=== PATIENT | female | born 1985 | race Caucasian/White ===

== ENCOUNTER 2021-12-24 18:55 | Emergency (ER) | payer BC ==
[2021-12-24] MEDS: Ondansetron 4 MG/2 ML SDV IVPUSH ONE (19:33)
[2021-12-24] MEDS: Sodium Chloride 0.9% 1,000 ML IV ONE (19:33)
[2021-12-24 20:01] LABS: CARBON DIOXIDE,CO2 26.8 mmol/L (21.0-32.0); POTASSIUM,K 3.6 mmol/L (3.5-5.1)
[2021-12-24] MEDS: Morphine 4 MG/ML VIAL IVPUSH ONE (20:31)
[2021-12-24] MEDS: Iopamidol 755 MG/ML 500 ML Multipack Bottle IVPUSH STA (21:05)
[2021-12-24] MEDS: Ciprofloxacin in D5W 400 MG in Premix Bag 1 BAG IV SCH ×2 (22:50)
[2021-12-24] MEDS: metroNIDAZOLE/Normal Saline 500 MG in Premix Bag 1 BAG IV ONE (22:51)
== END 2021-12-25 00:12 | disposition home or self-care (01) ==
LOC: MW.ED 18:55
DX: K57.32 Diverticulitis of large intestine without perforation or abscess without bleeding (principal); Z88.0 Allergy status to penicillin; Z88.2 Allergy status to sulfonamides; Z20.822 Contact with and (suspected) exposure to COVID-19
CPT/HCPCS: 36415; 74177; 80053; 81001; 81025; 83690; 83735; 85025; 87635; 96361; 96365; 96368; 96375; 99284; J0744; J2270; J2405; J3490; J7030; Q9967; U0002

== ENCOUNTER 2021-12-29 03:57 | Day surgery (SDC) | payer BC ==
[2021-12-29] MEDS ORDERED: Lactated Ringers 1,000 ML IV STA (03:59)
[2021-12-29] MEDS ORDERED: Morphine 4 MG/ML VIAL IVPUSH ONE ×2 (03:59→08:45)
[2021-12-29] MEDS ORDERED: Piperacillin/Tazobactam 4.5 GM in Sodium Chloride 0.9% 100 ML IV ONE (04:42)
[2021-12-29 04:59] LABS: CARBON DIOXIDE,CO2 27.6 mmol/L (21.0-32.0); POTASSIUM,K 3.3 mmol/L (3.5-5.1)
[2021-12-29] MEDS ORDERED: Iopamidol 755 MG/ML 500 ML Multipack Bottle IVPUSH ONE (05:21)
[2021-12-29] MEDS ORDERED: fentaNYL 50 MCG/ML SDV IVPUSH ONE (06:14)
[2021-12-29] MEDS ORDERED: Ondansetron 4 MG/2 ML SDV ONE ×2 (06:18→09:10)
[2021-12-29] MEDS ORDERED: Ondansetron 4 MG/2 ML SDV IVPUSH ONE (06:18)
[2021-12-29] MEDS ORDERED: cefOXitin 2 GM in Premix Bag 1 BAG IV ONE (08:57)
[2021-12-29] MEDS ORDERED: Lidocaine 2% 5 ML SDV ONE (09:10)
[2021-12-29] MEDS ORDERED: fentaNYL 100 MCG/2 ML SDV ONE (09:10)
[2021-12-29] MEDS ORDERED: Sugammadex Sodium 200 MG/2 ML VIAL ONE (09:10)
[2021-12-29] MEDS ORDERED: Propofol 200 MG/20 ML SDV ONE (09:10)
[2021-12-29] MEDS ORDERED: Midazolam 1 MG/ML 2 ML SDV ONE (09:10)
[2021-12-29] MEDS ORDERED: Dexamethasone 4 MG/ML 5 ML MDV ONE (09:10)
[2021-12-29] MEDS ORDERED: Rocuronium Bromide 50 MG/5 ML Syringe ONE (09:10)
[2021-12-29] MEDS: Lactated Ringers 1,000 ML IV SCH (09:17)
[2021-12-29] MEDS ORDERED: Famotidine 20 MG/2 ML SDV ONE (10:06)
[2021-12-29] MEDS ORDERED: Bupivacaine 0.5% 10 ML SDV ONE (10:06)
[2021-12-29] MEDS ORDERED: ceFAZolin 1 GM Vial ONE (10:07)
[2021-12-29] MEDS ORDERED: Phenylephrine HCl In 0.9% NaCl 1 MG/10 ML Vial ONE (11:01)
[2021-12-29] MEDS ORDERED: Ketorolac 30 MG/ML SDV ONE (11:35)
[2021-12-29] MEDS ORDERED: Lactated Ringers 1,000 ML IV SCH (12:00)
[2021-12-29] MEDS ORDERED: fentaNYL 50 MCG/ML SDV IVPUSH PRN (12:09)
[2021-12-29] MEDS ORDERED: Naloxone 0.4 MG/ML SDV IVPUSH PRN (12:09)
[2021-12-29] MEDS ORDERED: Morphine 2 MG/ML SYRINGE IVPUSH PRN ×2 (12:09→15:30)
[2021-12-29] MEDS ORDERED: HYDROmorphone 1 MG/ML Syringe IVPUSH PRN (12:09)
[2021-12-29] MEDS ORDERED: Ondansetron 4 MG/2 ML SDV IVPUSH PRN (12:09)
[2021-12-29] MEDS ORDERED: Metoclopramide 10 MG/2 ML SDV IVPUSH PRN (12:09)
[2021-12-29] MEDS ORDERED: Albuterol 0.083% 2.5 MG/3 ML Neb Soln NEB PRN (12:09)
[2021-12-29] MEDS ORDERED: fentaNYL 50 MCG/ML SDV ONE (12:17)
[2021-12-29] MEDS: cefOXitin 1 GM in Premix Bag 1 BAG IV SCH ×2 (13:03→17:08)
[2021-12-29] MEDS: Acetaminophen/HYDROcodone 325-5 MG Tab PO PRN ×2 (15:44→23:16)
[2021-12-30] MEDS: Lactated Ringers 1,000 ML IV SCH (00:12)
[2021-12-30] MEDS: cefOXitin 1 GM in Premix Bag 1 BAG IV SCH (00:14)
[2021-12-30] MEDS: Acetaminophen/HYDROcodone 325-5 MG Tab PO PRN ×2 (04:57→08:59)
== END 2021-12-30 10:13 | disposition home or self-care (01) ==
LOC: MW.ED 03:57 → MW.SDS 08:51 → MW.MS 10:10 → MW.SDS 12-30 10:13
PROVIDERS: ATTEND Surgery
DX: K35.30 Acute appendicitis with localized peritonitis, without perforation or gangrene (principal); F17.210 Nicotine dependence, cigarettes, uncomplicated; Z88.2 Allergy status to sulfonamides; Z79.899 Other long term (current) drug therapy; Z88.0 Allergy status to penicillin; Z01.812 Encounter for preprocedural laboratory examination; Z20.822 Contact with and (suspected) exposure to COVID-19
CPT/HCPCS: 36415; 44970; 74177; 80053; 81001; 83605; 83735; 84703; 85025; 85610; 87040; 87086; 87635; 96361; 96365; 96367; 96375; 96376; 99285; A9270; J0131; J0694; J1100; J1170; J1885; J2250; J2270; J2405; J2543; J2704; J3010; J3490; J7030; J7120; Q9967; 00840; 99284; J0690; U0002

== ENCOUNTER 2022-10-06 11:02 | Day surgery (SDC) | payer BC ==
[~2022-10-06 11:02] MED LIST: Lactated Ringers 1,000 ML IV SCH; Midazolam 1 MG/ML 2 ML SDV ONE; Propofol 200 MG/20 ML SDV ONE
[2022-10-06] MEDS ORDERED: Lactated Ringers 1,000 ML IV SCH (12:30)
== END 2022-10-06 12:48 | disposition home or self-care (01) ==
LOC: MW.SDS 11:02
PROVIDERS: ATTEND Surgery
DX: K29.50 Unspecified chronic gastritis without bleeding (principal); B96.81 Helicobacter pylori [H. pylori] as the cause of diseases classified elsewhere; K21.00 Gastro-esophageal reflux disease with esophagitis, without bleeding; K44.9 Diaphragmatic hernia without obstruction or gangrene; K57.30 Diverticulosis of large intestine without perforation or abscess without bleeding; F90.9 Attention-deficit hyperactivity disorder, unspecified type; F41.9 Anxiety disorder, unspecified; F43.10 Post-traumatic stress disorder, unspecified; E11.9 Type 2 diabetes mellitus without complications; E66.9 Obesity, unspecified; I10 Essential (primary) hypertension; F17.210 Nicotine dependence, cigarettes, uncomplicated; G47.30 Sleep apnea, unspecified; F32.A Depression, unspecified; Z87.19 Personal history of other diseases of the digestive system; Z90.49 Acquired absence of other specified parts of digestive tract; Z88.0 Allergy status to penicillin; Z88.2 Allergy status to sulfonamides; Z79.899 Other long term (current) drug therapy; Z80.0 Family history of malignant neoplasm of digestive organs; Z68.32 Body mass index [BMI] 32.0-32.9, adult
CPT/HCPCS: 43239; 81025; J2250; J2704; J7120; 00731

== ENCOUNTER 2023-03-28 03:59 | Emergency (ER) | payer BC ==
[2023-03-28] MEDS ORDERED: Sodium Chloride 0.9% 10 ML Syringe FLUSH PRN (04:04)
[2023-03-28] MEDS ORDERED: Sodium Chloride 0.9% 2.5 ML Syringe FLUSH PRN (04:04)
[2023-03-28 04:21] LABS: BASOPHILS ABSOLUTE AUTO 0.04 K/uL (0.00-0.20); BASOPHILS PERCENT AUTO 0.4 % (0.0-1.0); EOSINOPHILS ABSOLUTE AUTO 0.22 K/uL (0.00-0.45); EOSINOPHILS PERCENT AUTO 1.9 % (0.0-6.0); HEMOGLOBIN 13.1 g/dL (12.0-16.0); IMMATURE GRAN ABSOLUTE AUTO 0.03 K/uL (0.00-0.05); IMMATURE GRAN PERCENT AUTO 0.3 % (0.0-0.4); LYMPHOCYTES PERCENT AUTO 29.9 % (24.0-44.0); MEAN CORPUSCULAR HEMOGLOBIN 30.7 pg (28.0-32.0); MEAN CORPUSCULAR HGB CONC 34.5 g/dL (32.0-36.0); MEAN PLATELET VOLUME 9.9 fL (9.4-12.3); MONOCYTES ABSOLUTE AUTO 0.99 K/uL (0.00-0.80); MONOCYTES PERCENT AUTO 8.7 % (0.0-8.0); NEUTROPHILS ABSOLUTE AUTO 6.69 K/uL (1.80-7.70); NEUTROPHILS PERCENT AUTO 58.8 % (41.0-71.0); PLATELET COUNT,PLT 277 K/uL (150-400); RED BLOOD CELL COUNT 4.27 M/uL (4.10-5.30); WHITE BLOOD CELL COUNT,WBC 11.37 K/uL (3.9-11.3)
[2023-03-28 04:46] LABS: A/G RATIO 0.9 (0.9-1.6); ALBUMIN 3.7 g/dL (3.4-5.0); BILIRUBIN TOTAL 0.4 mg/dL (0.2-1.0); CARBON DIOXIDE,CO2 28.5 mmol/L (21.0-32.0); EST CRCL DRUG DOSING (CG) 74.18 mL/min; POTASSIUM,K 3.5 mmol/L (3.5-5.1); PROTEIN TOTAL,TP 7.8 g/dL (6.4-8.2)
== END 2023-03-28 05:22 | disposition home or self-care (01) ==
LOC: MW.ED 03:59
DX: R07.89 Other chest pain (principal); I10 Essential (primary) hypertension; K21.9 Gastro-esophageal reflux disease without esophagitis; E11.9 Type 2 diabetes mellitus without complications; E66.9 Obesity, unspecified; Z79.899 Other long term (current) drug therapy; Z88.0 Allergy status to penicillin; Z88.2 Allergy status to sulfonamides; Z68.29 Body mass index [BMI] 29.0-29.9, adult
CPT/HCPCS: 36415; 71045; 80053; 84484; 85025; 85379; 93005; 99285; J3490; 93010; 99282

== ENCOUNTER 2023-04-18 04:17 | Emergency (ER) | payer BC ==
[2023-04-18] MEDS ORDERED: Bupivacaine 0.5% 10 ML SDV INJECT ONE (04:35)
[2023-04-18] MEDS ORDERED: Acetaminophen/HYDROcodone 325-5 MG Tab PO ONE (05:00)
== END 2023-04-18 05:12 | disposition home or self-care (01) ==
LOC: MW.ED 04:17
DX: K08.89 Other specified disorders of teeth and supporting structures (principal); I10 Essential (primary) hypertension; Z88.0 Allergy status to penicillin; Z88.2 Allergy status to sulfonamides; Z79.899 Other long term (current) drug therapy
CPT/HCPCS: 64400; 99282; A9270; J0665; 99283